=== PATIENT | female | born 1990 | race Caucasian/White ===

== ENCOUNTER 2019-01-04 05:19 | Emergency (ER) | payer OTHER ==
[~2019-01-04] VITALS: Ht 154.9 cm; Wt 43.3 kg
[~2019-01-04 05:19] MED LIST: CRUTCH1 EACH MC; FLEXERIL PO; IBUPROFEN 800800 M1 PO; NORCO 5-325 TA1 EACH PO; PODIAPN CAPSUL1 EACH PO; TRAMADOL 50 MG50 MG PO; TRINATE TABLET1 TAB PO; UNISOM25 MG PO
[2019-01-04] MEDS ORDERED: CELEXA10 MG PO (05:28)
[2019-01-04 05:38] LABS: URINE BILIRUBIN NEGATIVE (Negative); URINE BLOOD 2+ (Negative); URINE CLARITY CLEAR; URINE COLOR YELLOW; URINE GLUCOSE-RANDOM NEGATIVE (Negative); URINE KETONES NEGATIVE (Negative); URINE PROTEIN 1+ (Negative); URINE UROBILINOGEN 0.2 E.U./dl (0.2-1.0)
[2019-01-04 05:39] LABS: URINE LEUKOCYTES-REFLEX 2+ (Negative); URINE NITRITE-REFLEX POSITIVE (Negative)
[2019-01-04 05:46] LABS: CASTS None Seen /LPF (None Seen); CRYSTALS None Seen /LPF (None Seen); MUCUS 4-6 Moderate strn/LPF (None Seen); SQUAMOUS 0-3 Few /LPF (0-3); URINE RBC 3-10 Few /HPF (0-2)
[2019-01-04] MEDS ORDERED: AUGMENTIN 500-1 EACH PO (06:00)
[2019-01-04] MEDS ORDERED: PYRIDIUM200 MG PO (06:00)
[2019-01-04 06:11] VITALS: BP 113/77
== END 2019-01-04 06:13 | disposition home or self-care (01) ==
LOC: M.ERS 05:19
PROVIDERS: Personal Emergency Response Attendant
DX: N39.0 Urinary tract infection, site not specified (principal); F17.210 Nicotine dependence, cigarettes, uncomplicated

== ENCOUNTER 2019-01-06 09:03 | Emergency (ER) | payer OTHER ==
[~2019-01-06] VITALS: Ht 154.9 cm; Wt 44.0 kg
[~2019-01-06 09:03] MED LIST changes: +AUGMENTIN 500-1 EACH PO; +CELEXA10 MG PO; +PYRIDIUM200 MG PO
[2019-01-06 09:23] LABS: URINE CLARITY CLEAR; URINE LEUKOCYTES-REFLEX TRACE (Negative)
[2019-01-06] MEDS ORDERED: ZOFRAN ODT4 MG DISSOLVE (09:26)
[2019-01-06] MEDS ORDERED: MACROBID 100 M100 M1 PO (09:26)
[2019-01-06 09:28] LABS: ICTOTEST (BILI CONFIRMATORY) Negative (Negative)
[2019-01-06 09:29] LABS: URINE COLOR DARK YELLOW
[2019-01-06 09:31] LABS: CASTS None Seen /LPF (None Seen); CRYSTALS None Seen /LPF (None Seen); MUCUS None Seen strn/LPF (None Seen); SQUAMOUS 4-10 Moderate /LPF (0-3); URINE RBC 3-10 Few /HPF (0-2)
[2019-01-06 09:34] LABS: ABSOLUTE LYMPHOCYTES 1.1 thou/uL (0.8-5.3); ABSOLUTE MONOCYTES 0.7 thou/uL (0.0-1.2); ABSOLUTE NEUTROPHILS 7.4 thou/uL (1.6-8.1); BASOPHILS 0.4 %; EOSINOPHILS 0.2 %; HEMATOCRIT 36.2 % (37.0-47.0); HEMOGLOBIN 12.3 gm/dL (12.0-15.0); LYMPHOCYTES 11.5 %; MCH 30.7 pg (26.0-34.0); MCHC 34.1 g/dL (28.0-37.0); MCV 90.1 fL (80.0-100.0); MONOCYTES 7.4 %; MPV 7.4 fl. (7.2-11.1); NUCLEATED RBCS 0 /100WBC; PLATELET COUNT* 395 thou/uL (150-400); POLYS 80.5 %; RBC 4.01 mil/uL (4.20-5.00); RDW-CV 13.2 % (10.5-14.5); WBC 9.1 thou/uL (4.0-11.0)
[2019-01-06 09:40] LABS: CREATININE 0.7 mg/dL (0.6-1.3); POTASSIUM 3.3 mmol/L (3.5-5.1)
[2019-01-06 09:45] LABS: ALBUMIN 3.2 g/dL (3.4-5.0); TOTAL BILIRUBIN 0.2 mg/dL (<0.1-1.0); TOTAL PROTEIN 7.9 g/dL (6.4-8.2)
[2019-01-06 10:02] VITALS: BP 106/74
== END 2019-01-06 10:00 | disposition home or self-care (01) ==
LOC: M.ERS 09:03
PROVIDERS: Family Medicine
DX: R11.2 Nausea with vomiting, unspecified (principal); R10.84 Generalized abdominal pain; F32.9 Major depressive disorder, single episode, unspecified; F41.9 Anxiety disorder, unspecified; F17.210 Nicotine dependence, cigarettes, uncomplicated

== ENCOUNTER 2020-06-09 17:33 | Emergency (ER) | payer OTHER, MEDICAID ==
[~2020-06-09] VITALS: Ht 154.9 cm; Wt 44.0 kg
[~2020-06-09 17:33] MED LIST changes: +MACROBID 100 M100 M1 PO; +ZOFRAN ODT4 MG DISSOLVE
[2020-06-09] MEDS ORDERED: BUSPIRONE HCL10 MG PO (17:49)
[2020-06-09] MEDS ORDERED: WELLBUTRIN 100100 MG PO (17:49)
[2020-06-09 18:13] LABS: HEMATOCRIT 38.8 % (37.0-47.0); MCH 29.8 pg (26.0-34.0); MCHC 33.4 g/dL (28.0-37.0); NUCLEATED RBCS 0 /100WBC; PLATELET COUNT* 280 thou/uL (150-400); RBC 4.36 mil/uL (4.20-5.00); RDW-CV 13.4 % (10.5-14.5); WBC 11.3 thou/uL (4.0-11.0)
[2020-06-09 18:22] LABS: CALCIUM 9.1 mg/dL (8.5-10.1); CREATININE 0.8 mg/dL (0.6-1.3); POTASSIUM 4.2 mmol/L (3.5-5.1)
[2020-06-09 18:27] LABS: ALBUMIN 3.5 g/dL (3.4-5.0); TOTAL BILIRUBIN 0.3 mg/dL (<0.1-1.0); TOTAL PROTEIN 7.4 g/dL (6.4-8.2)
[2020-06-09 18:54] LABS: ABSOLUTE LYMPHOCYTES 0.5 thou/uL (0.8-5.3); ABSOLUTE MONOCYTES 0.8 thou/uL (0.0-1.2); ABSOLUTE NEUTROPHILS 10.1 thou/uL (1.6-8.1); PLATELET ESTIMATE ADEQUATE
[2020-06-09] MEDS ORDERED: APAP W/CODEINE1 TA2 PO (19:29)
[2020-06-09] MEDS ORDERED: ZOFRAN ODT4 MG PO (19:29)
[2020-06-09 19:45] VITALS: BP 110/70
== END 2020-06-09 19:46 | disposition home or self-care (01) ==
LOC: M.ERS 17:33
PROVIDERS: Nurse Practitioner Family
DX: J03.90 Acute tonsillitis, unspecified (principal); F17.210 Nicotine dependence, cigarettes, uncomplicated; Z86.19 Personal history of other infectious and parasitic diseases